=== PATIENT | female | born 1950 | race Caucasian/White ===

== ENCOUNTER 2016-04-20 15:31 | Inpatient (IN) | payer MEDICARE, SELFPAY ==
[2016-04-20] MEDS ORDERED: SODIUM CHLORIDE 0.9% 500 ML IV STA (16:34)
--- NOTE | 2016-04-20 16:38 | ED ---
General Adult HPI - General Chief complaint: Neuro Symptoms/Deficit Stated complaint: left side weakness Time Seen by Provider: 04/20/16 15:40 Source: patient, family, RN notes reviewed Mode of arrival: wheelchair - History of Present Illness Initial comments: This is a 65-year-old female presents emergency Department with a past medical history significant for high cholesterol. Patient states she started having symptoms about 11 AM yesterday she states that started feeling weird on the left side of her body and in fact thought her left side was not as coordinated as it normally is. Patient states she woke up this morning was unable to walk and did fall over but did not injure herself. Patient states she's having a difficult time controlling her left arm or her left leg. Patient has family in the room and they state that the left side of her face is also droopy. She does not appear to have any slurred speech or visual disturbances. Patient denies headache patient denies chest pain patient denies any palpitations difficulty breathing shortness of breath. Patient denies any recent fever chills or cough per patient denies abdominal pain patient denies nausea vomiting diarrhea. - Related Data Home Medications Medication Instructions Recorded Confirmed HYDROcodone/APAP 10-325MG [[place] 1 tab PO QID PRN 05/18/15 04/20/16 10-325] Multivitamins, Thera [Multivitamin] 1 tab PO DAILY 05/18/15 04/20/16 Sertraline [Zoloft] 100 mg PO DAILY 05/18/15 04/20/16 Aspirin [Adult Low Dose Aspirin EC] 81 mg PO DAILY 05/21/15 04/20/16 Allergies Allergy/AdvReac Type Severity Reaction Status Date / Time No Known Allergies Allergy Verified 04/20/16 17:32 Review of Systems ROS Statement: Those systems with pertinent positive or pertinent negative responses have been documented in the HPI. ROS Other: All systems not noted in ROS Statement are negative. Past Medical History Past Medical History: Blood Disorder, Eye Disorder, Hyperlipidemia, Osteoarthritis (OA) Additional Past Medical History / Comment(s): HX MIGRAINES. HX LIDEN FACTOR V. HX NECK PAIN- HERNIATED DISC. USES OTC GLASSES TO READ ONLY History of Any Multi-Drug Resistant Organisms: None Reported Past Surgical History: Appendectomy, Section, Tonsillectomy Additional Past Surgical History / Comment(s): X 2 Past Anesthesia/Blood Transfusion Reactions: No Reported Reaction Past Psychological History: Depression Smoking Status: Current every day smoker Past Alcohol Use History: None Reported Additional Past Alcohol Use History / Comment(s): SMOKER 20 YEARS- 1/2 PPD Past Drug Use History: None Reported - Past Family History Brother(s) Family Medical History: Blood Disorder, Deep Vein Thrombosis (DVT) Additional Family Medical History / Comment(s): LIDEN FACTOR V- HAD BLOOD CLOT Sister(s) Family Medical History: Blood Disorder Additional Family Medical History / Comment(s): 2 SISTERS TESTED POSITIVE ALSO FOR LIDEN FACTOR V General Exam - General Exam Comments Initial Comments: GENERAL: Patient is well-developed and well-nourished. Patient is nontoxic and well- hydrated and is in no acute distress. ENT: Neck is soft and supple. No significant lymphadenopathy is noted. Oropharynx is clear. Moist mucous membranes. Neck has full range of motion without eliciting any pain. EYES: The sclera were anicteric and conjunctiva were pink and moist. Extraocular movements were intact and pupils were equal round and reactive to light. Eyelids were unremarkable. PULMONARY: Unlabored respirations. Good breath sounds bilaterally. No audible rales rhonchi or wheezing was noted. CARDIOVASCULAR: There is a regular rate and rhythm without any murmurs gallops or rubs. ABDOMEN: Soft and nontender with normal bowel sounds. No palpable organomegaly was noted. There is no palpable pulsatile mass. SKIN: Skin is clear with no lesions or rashes and otherwise unremarkable. NEUROLOGIC: Patient is alert and oriented x3. Patient appears to have slight facial drooping on the left side of her face. Patient has poor finger to nose accuracy with the left hand as well as poor heel to fletcher accuracy of the left leg. Patient states it is difficult to control either of those extremities MUSCULOSKELETAL: Normal extremities with adequate strength and full range of motion. No lower extremity swelling or edema. No calf tenderness. LYMPHATICS: No significant lymphadenopathy is noted PSYCHIATRIC: Normal psychiatric evaluation. Course Vital Signs 04/20/16 04/20/16 15:36 16:30 Temperature 98.8 F Pulse Rate 90 76 Respiratory 20 18 Rate Blood Pressure 184/91 191/93 O2 Sat by Pulse 98 100 Oximetry Medical Decision Making - Medical Decision Making CT of the head shows a lacunar infarct and internal capsule chest x-ray shows no acute abnormality. Patient still has residual left-sided deficit and will be admitted as Dr. Dr. Palma he agrees to admission I admitted the patient. - Lab Data Result diagrams: 04/20/16 16:25 04/20/16 16:25 Lab Results 04/20/16 04/20/16 04/20/16 Range/Units 16:25 16:25 16:25 WBC 9.8 (3.8-10.6) k/uL RBC 4.14 (3.80-5.40) m/uL Hgb 12.8 (11.4-16.0) gm/dL Hct 38.4 (34.0-46.0) % MCV 92.8 (80.0-100.0) fL MCH 30.9 (25.0-35.0) pg MCHC 33.3 (31.0-37.0) g/dL RDW 12.4 (11.5-15.5) % Plt Count 319 (150-450) k/uL Neutrophils % 65 % Lymphocytes % 27 % Monocytes % 4 % Eosinophils % 2 % Basophils % 1 % Neutrophils # 6.4 (1.3-7.7) k/uL Lymphocytes # 2.6 (1.0-4.8) k/uL Monocytes # 0.4 (0-1.0) k/uL Eosinophils # 0.2 (0-0.7) k/uL Basophils # 0.1 (0-0.2) k/uL PT (9.0-12.0) sec INR (<1.1) APTT (22.0-30.0) sec Sodium 145 (137-145) mmol/L Potassium 3.4 L (3.5-5.1) mmol/L Chloride 102 (98-107) mmol/L Carbon Dioxide 28 (22-30) mmol/L Anion Gap 15 mmol/L BUN 7 (7-17) mg/dL Creatinine 0.65 (0.52-1.04) mg/dL Est GFR (MDRD) Af Amer >60 (>60 ml/min/1.73 sqM) Est GFR (MDRD) Non-Af >60 (>60 ml/min/1.73 sqM) Glucose 91 (74-99) mg/dL Calcium 9.4 (8.4-10.2) mg/dL Total Bilirubin 0.4 (0.2-1.3) mg/dL AST 28 (14-36) U/L ALT 28 (9-52) U/L Alkaline Phosphatase 65 (38-126) U/L Total Creatine Kinase 160 H (30-135) U/L CK-MB (CK-2) 1.1 (0.0-2.4) ng/mL CK-MB (CK-2) Rel Index 0.7 Troponin I <0.012 (0.000-0.034) ng/mL Total Protein 7.0 (6.3-8.2) g/dL Albumin 4.2 (3.5-5.0) g/dL 04/20/16 Range/Units 16:25 WBC (3.8-10.6) k/uL RBC (3.80-5.40) m/uL Hgb (11.4-16.0) gm/dL Hct (34.0-46.0) % MCV (80.0-100.0) fL MCH (25.0-35.0) pg MCHC (31.0-37.0) g/dL RDW (11.5-15.5) % Plt Count (150-450) k/uL Neutrophils % % Lymphocytes % % Monocytes % % Eosinophils % % Basophils % % Neutrophils # (1.3-7.7) k/uL Lymphocytes # (1.0-4.8) k/uL Monocytes # (0-1.0) k/uL Eosinophils # (0-0.7) k/uL Basophils # (0-0.2) k/uL PT 10.4 (9.0-12.0) sec INR 1.0 (<1.1) APTT 23.7 (22.0-30.0) sec Sodium (137-145) mmol/L Potassium (3.5-5.1) mmol/L Chloride (98-107) mmol/L Carbon Dioxide (22-30) mmol/L Anion Gap mmol/L BUN (7-17) mg/dL Creatinine (0.52-1.04) mg/dL Est GFR (MDRD) Af Amer (>60 ml/min/1.73 sqM) Est GFR (MDRD) Non-Af (>60 ml/min/1.73 sqM) Glucose (74-99) mg/dL Calcium (8.4-10.2) mg/dL Total Bilirubin (0.2-1.3) mg/dL AST (14-36) U/L ALT (9-52) U/L Alkaline Phosphatase (38-126) U/L Total Creatine Kinase (30-135) U/L CK-MB (CK-2) (0.0-2.4) ng/mL CK-MB (CK-2) Rel Index Troponin I (0.000-0.034) ng/mL Total Protein (6.3-8.2) g/dL Albumin (3.5-5.0) g/dL Disposition Clinical Impression: Cerebrovascular accident Disposition: [facility] Time of Disposition: 18:04
[2016-04-20 17:06] LABS: Partial Thromboplastin Time 23.7 sec (22.0-30.0); Prothrombin Time 10.4 sec (9.0-12.0)
[2016-04-20 17:08] LABS: ALT 28 U/L (9-52); AST 28 U/L (14-36); Alkaline Phosphatase 65 U/L (38-126); Anion Gap 15 mmol/L; Blood Urea Nitrogen 7 mg/dL (7-17); Calcium 9.4 mg/dL (8.4-10.2); Carbon Dioxide 28 mmol/L (22-30); Chloride 102 mmol/L (98-107); Glucose 91 mg/dL (74-99); Non-African American GFR(MDRD) >60 (>60 ml/min/1.73 sqM); Potassium 3.4 mmol/L (3.5-5.1); Sodium 145 mmol/L (137-145); Total Bilirubin 0.4 mg/dL (0.2-1.3)
[2016-04-20 17:09] LABS: Basophils # (A) 0.1 k/uL (0-0.2); Basophils % (A) 1 %; CH 31.6; CHCM 34.2; Eosinophils # (A) 0.2 k/uL (0-0.7); Eosinophils % (A) 2 %; HCT 38.4 % (34.0-46.0); HDW 2.48; HGB 12.8 gm/dL (11.4-16.0); Luc # (Auto) 0.18; Luc % (Auto) 2; Lymphocytes # (A) 2.6 k/uL (1.0-4.8); Lymphocytes % (A) 27 %; MCH 30.9 pg (25.0-35.0); MCHC 33.3 g/dL (31.0-37.0); MCV 92.8 fL (80.0-100.0); Mean Platelet Volume 6.5; Monocytes # (A) 0.4 k/uL (0-1.0); Monocytes % (A) 4 %; Neutrophils # (A) 6.4 k/uL (1.3-7.7); Neutrophils % (A) 65 %; RBC 4.14 m/uL (3.80-5.40); RDW 12.4 % (11.5-15.5); WBC 9.8 k/uL (3.8-10.6); WBC (Perox) 10.16
[2016-04-20 17:18] LABS: Creatine Kinase 160 U/L (30-135)
--- NOTE | 2016-04-20 17:25 | XR ---
EXAMINATION TYPE: XR chest 2V DATE OF EXAM: 04/20/2016 5:21 PM COMPARISON: NONE HISTORY: Left-sided arm pain TECHNIQUE: Frontal and lateral views of the chest are obtained. FINDINGS: Heart and mediastinum are normal. Lungs are clear of consolidation. There is no heart fail ure. There are no hilar masses. There is no pleural effusion. IMPRESSION: No active cardiopulmonary disease. There is osteopenia with slight wedging of T8 vertebr a.
--- NOTE | 2016-04-20 17:26 | CT ---
EXAMINATION TYPE: CT brain wo con DATE OF EXAM: 04/20/2016 5:21 PM COMPARISON: NONE HISTORY: Left sided weakness. CT DLP: 1017.90 mGycm Automated exposure control for dose reduction was used. FINDINGS: The ventricles and sulci appear normal. There is no mass effect nor midline shift. There is no sign o f intracranial hemorrhage. There is mild hypodensity at the genu right internal capsule. The calvariu m is intact. There is mild mucosal thickening in the maxillary sinuses. There is mild mucosal thicken ing in the ethmoid and frontal sinus. IMPRESSION: There is probably a lacunar infarct in the right internal capsule. Mild sinusitis.
[2016-04-20 17:31] LABS: Creatine Kinase MB 1.1 ng/mL (0.0-2.4); Troponin I <0.012 ng/mL (0.000-0.034)
[2016-04-20] MEDS ORDERED: ASPIRIN 325 MG TAB PO STA (18:04)
[2016-04-20 20:51] VITALS: BMI 20.3
[2016-04-20] MEDS: HYDROcodone/APAP 10-325MG 1 EACH TAB PO PRN (22:00)
[2016-04-21 07:17] LABS: Anion Gap 9 mmol/L; Blood Urea Nitrogen 8 mg/dL (7-17); Calcium 9.1 mg/dL (8.4-10.2); Carbon Dioxide 29 mmol/L (22-30); Chloride 105 mmol/L (98-107); Glucose 90 mg/dL (74-99); Non-African American GFR(MDRD) >60 (>60 ml/min/1.73 sqM); Potassium 3.9 mmol/L (3.5-5.1); Sodium 143 mmol/L (137-145)
[2016-04-21] MEDS: MULTIVITAMINS, THERA 1 EACH TAB PO SCH (07:52)
[2016-04-21] MEDS: NICOTINE 14MG/24HR PATCH TRANSDERM SCH (07:52)
[2016-04-21] MEDS: SERTRALINE 100 MG TAB PO SCH (07:52)
[2016-04-21] MEDS: HEPARIN SODIUM,PORCINE 5,000 UNIT/ML 1 ML VIAL SQ SCH ×2 (07:52→20:18)
[2016-04-21] MEDS ORDERED: ASPIRIN 325 MG TAB PO SCH (09:00)
[2016-04-21] MEDS: HYDROcodone/APAP 10-325MG 1 EACH TAB PO PRN (11:00)
--- NOTE | 2016-04-21 15:25 | US ---
EXAMINATION TYPE: US venous doppler duplex LE BI DATE OF EXAM: 04/21/2016 2:39 PM COMPARISON: NONE CLINICAL HISTORY:Leg Swelling. Cerebrovascular accident, factor V SIDE PERFORMED: Bilateral VESSELS IMAGED: External Iliac Vein (EIV) Common Femoral Vein Deep Femoral Vein Greater Saphenous Vein * Femoral Vein Popliteal Vein Small Saphenous Vein * Proximal Calf Veins (* superficial vessels) TECHNOLOGIST IMPRESSION: Right Leg: Negative for DVT Left Leg: Negative for DVT Grayscale, color Doppler, spectral Doppler imaging performed of the deep veins of both lower extremit ies. Within the right popliteal fossa there is a focus measuring 2.8 x 1.3 x 1.4 cm which is hypoechoic co mpatible with probable semimembranosus gastric intravenous cyst. IMPRESSION: No deep venous thromboses evident within the bilateral lower extremities. 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
--- NOTE | 2016-04-21 15:27 | US ---
EXAMINATION TYPE: US carotid duplex BILAT DATE OF EXAM: 04/21/2016 3:02 PM COMPARISON: NONE CLINICAL HISTORY: Carotid stenosis, cerebrovascular accident, left-sided weakness EXAM MEASUREMENTS: RIGHT: Peak Systolic Velocity (PSV) cm/sec ----- Right CCA: 74.0 ----- Right ICA: 96.5 ----- Right ECA: 80.9 ICA/CCA ratio: 1.3 RIGHT: End Diastole cm/sec ----- Right CCA: 23.5 ----- Right ICA: 34.2 ----- Right ECA: 18.0 LEFT: Peak Systolic Velocity (PSV) cm/sec ----- Left CCA: 73.1 ----- Left ICA: 78.2 ----- Left ECA: 65.2 ICA/CCA ratio: 1.1 LEFT: End Diastole cm/sec ----- Left CCA: 22.8 ----- Left ICA: 29.2 ----- Left ECA: 16.5 VERTEBRALS (direction of flow): Right Vertebral: Antegrade Left Vertebral: Antegrade Grayscale, color Doppler, spectral Doppler imaging performed of the carotid arteries IMPRESSION: No hemodynamically significant stenosis of the proximal internal carotid arteries bilate rally by Doppler criteria, and indirect measurement of carotid stenosis
--- NOTE | 2016-04-21 17:02 | P.CONS ---
History of Present Illness - Reason for Consult Consult date: 04/21/16 factor V mutation Requesting physician: Caroline Almeida - Chief Complaint left sided weakness - History of Present Illness Ms. Rea is a very pleasant 65 year old female with personal and strong family history-both parents and all siblings-of Factor V leiden mutation , she states she had the labs work 4-5 years ago with her PCP Dr. Zaldivar after her brother had a DVT of the leg. Pt states ongoing "heaviness" in her left arm and left leg, no other deficits to report, she has been on a daily baby aspirin. Denies any personal CVA/TIA, DVT or PE. She has risk factors for stroke including smoking and hyperlipidemia. Review of Systems All systems: negative Constitutional: Reports as per HPI Past Medical History Past Medical History: Blood Disorder, Eye Disorder, Hyperlipidemia, Osteoarthritis (OA) Additional Past Medical History / Comment(s): HX MIGRAINES. HX LIDEN FACTOR V. HX NECK PAIN- HERNIATED DISC. USES OTC GLASSES TO READ ONLY History of Any Multi-Drug Resistant Organisms: None Reported Past Surgical History: Appendectomy, Section, Tonsillectomy Additional Past Surgical History / Comment(s): X 2 Past Anesthesia/Blood Transfusion Reactions: No Reported Reaction Past Psychological History: Depression Smoking Status: Current every day smoker Past Alcohol Use History: None Reported Additional Past Alcohol Use History / Comment(s): Smoke 1 pack a day. started at age 21 Past Drug Use History: None Reported Additional Drug Use History / Comment(s): occasional alcohol use - Past Family History Brother(s) Family Medical History: Blood Disorder, Deep Vein Thrombosis (DVT) Additional Family Medical History / Comment(s): FACTOR V Leiden- HAD BLOOD CLOT Sister(s) Family Medical History: Blood Disorder Additional Family Medical History / Comment(s): 2 SISTERS TESTED POSITIVE ALSO FOR LIDEN FACTOR V Daughter(s) Family Medical History: Blood Disorder Additional Family Medical History / Comment(s): Liden Factor V Mother Family Medical History: Blood Disorder, CVA/TIA Additional Family Medical History / Comment(s): Liden Factor V Father Family Medical History: Blood Disorder Additional Family Medical History / Comment(s): Liden Factor V Medications and Allergies Home Medications Medication Instructions Recorded Confirmed Type HYDROcodone/APAP 10-325MG [[place] 1 tab PO QID PRN 05/18/15 04/20/16 History 10-325] Multivitamins, Thera [Multivitamin] 1 tab PO DAILY 05/18/15 04/20/16 History Sertraline [Zoloft] 100 mg PO DAILY 05/18/15 04/20/16 History Aspirin [Adult Low Dose Aspirin EC] 81 mg PO DAILY 05/21/15 04/20/16 History Allergies Allergy/AdvReac Type Severity Reaction Status Date / Time No Known Allergies Allergy Verified 04/20/16 17:32 Physical Exam Vitals: Vital Signs Temp Pulse Pulse Resp BP BP Pulse Ox 04/21/16 15:23 16 04/21/16 15:22 74 16 181/99 04/21/16 11:09 70 04/21/16 10:59 70 16 151/79 96 04/21/16 08:56 95 04/21/16 08:00 70 16 04/21/16 07:49 96.8 F L 70 16 136/76 95 04/21/16 05:25 97.6 F 72 16 184/100 99 04/21/16 03:29 61 04/21/16 03:25 61 16 156/75 96 04/21/16 00:00 64 04/20/16 23:25 64 16 170/89 98 04/20/16 22:25 61 16 175/86 99 04/20/16 21:25 67 16 186/90 98 04/20/16 20:25 97 F L 60 16 189/88 98 04/20/16 19:15 70 18 181/89 96 Intake and Output 04/21/16 04/21/16 04/21/16 06:59 14:59 22:59 Intake Total 560 Output Total 300 650 Balance -300 -90 Intake: Oral 560 Output: Urine 300 650 Other: Voiding Method Toilet Toilet # Voids 1 # Bowel Movements 0 Weight 52 kg - Constitutional General appearance: average body habitus, cooperative, no acute distress - EENT Eyes: anicteric sclerae, normal appearance ENT: hearing grossly normal, normal oropharynx - Neck Neck: no lymphadenopathy - Respiratory Respiratory: bilateral: CTA - Cardiovascular Rhythm: regular Heart sounds: normal: S1, S2 foot Peripheral Edema: bilateral: None - Gastrointestinal General gastrointestinal: no absent bowel sounds, no decreased bowel sounds, no distended, no hepatomegaly, no hyperactive bowel sounds, normal bowel sounds, no organomegaly, no rigid, no scaphoid, soft, no splenomegaly, no tenderness, no umbilical hernia, no ventral hernia - Integumentary Integumentary: normal - Musculoskeletal Musculoskeletal: left sided weakness - Psychiatric Psychiatric: A&O x's 3, appropriate affect, intact judgment & insight Results CBC & Chem 7: 04/20/16 16:25 04/21/16 06:03 Chest x-ray: report reviewed CT Scan - head: report reviewed Assessment and Plan Plan: Factor V leiden mutation-have requested labs from PCP diagnosing Factor V mutation-are both genes mutated or just 1? Typically, Factor V mutations would be more likely to cause venous thrombosis vs arterial thrombosis but if both genes are mutated then arterial risk would be slightly greater. Pt has ECHO scheduled to evaluate for PFO. Dr. Jones has requested BLE doppler to evaluate for DVT. Final recommendations will be communicated once all labs results are known. Recommend treatment based on stroke protocol for now.
--- NOTE | 2016-04-21 17:39 | P.CNNES ---
History of Present Illness Consult date: 04/21/16 Requesting physician: Joao Palma Reason for Consult: CVA History of Present Illness: Patient is a pleasant 65-year-old female who is being evaluated by the neurology service on 04/21/2016 per the request of Dr. Palma for CVA. Patient states she had gone to bed on Thursday night without any symptoms. She woke up Thursday morning with left-sided weakness. Patient states she tried to walk and fell to the ground. Patient was noted to have a left-sided facial droop. Patient called her daughter and was brought to [facility] for further evaluation. Patient does not report any slurred speech or visual disturbance. Patient denied any pain or headache. Upon admission, patient's blood pressure was noted to be 184/100. Laboratory workup was essentially unremarkable. Patient does report a history of Factor V leiden mutation and has been taking low-dose aspirin at home. Patient reports strong family history of this mutation. Patient denies any prior CVA/TIA. Computed tomography scan of the brain showed right lacunar infarct. Carotid Dopplers were negative for any hemodynamically significant stenosis. Venous Dopplers were negative to bilateral lower extremities. At the time of my evaluation, patient is resting comfortably in bed and appears to be in no acute distress. Review of Systems REVIEW OF SYSTEMS: CONSTITUTIONAL: Alert and oriented EYES: PERRLA ENT: Left-sided facial droop noted CARDIOVASCULAR: Regular rate and rhythm RESPIRATORY: Respirations nonlabored GASTROINTESTINAL: Abdomen is soft GENITOURINARY: Negative PSYCHIATRIC: Negative ENDOCRINE: Negative MUSCULOSKELETAL: Left-sided arm and leg weakness DERMATOLOGICAL: No rash noted Past Medical History Past Medical History: Blood Disorder, Eye Disorder, Hyperlipidemia, Osteoarthritis (OA) Additional Past Medical History / Comment(s): HX MIGRAINES. HX LIDEN FACTOR V. HX NECK PAIN- HERNIATED DISC. USES OTC GLASSES TO READ ONLY History of Any Multi-Drug Resistant Organisms: None Reported Past Surgical History: Appendectomy, Section, Tonsillectomy Additional Past Surgical History / Comment(s): X 2 Past Anesthesia/Blood Transfusion Reactions: No Reported Reaction Past Psychological History: Depression Smoking Status: Current every day smoker Past Alcohol Use History: None Reported Additional Past Alcohol Use History / Comment(s): Smoke 1 pack a day. started at age 21 Past Drug Use History: None Reported Additional Drug Use History / Comment(s): occasional alcohol use - Past Family History Brother(s) Family Medical History: Blood Disorder, Deep Vein Thrombosis (DVT) Additional Family Medical History / Comment(s): FACTOR V Leiden- HAD BLOOD CLOT Sister(s) Family Medical History: Blood Disorder Additional Family Medical History / Comment(s): 2 SISTERS TESTED POSITIVE ALSO FOR LIDEN FACTOR V Daughter(s) Family Medical History: Blood Disorder Additional Family Medical History / Comment(s): Liden Factor V Mother Family Medical History: Blood Disorder, CVA/TIA Additional Family Medical History / Comment(s): Liden Factor V Father Family Medical History: Blood Disorder Additional Family Medical History / Comment(s): Liden Factor V Medications and Allergies Home Medications Medication Instructions Recorded Confirmed Type HYDROcodone/APAP 10-325MG [[place] 1 tab PO QID PRN 05/18/15 04/20/16 History 10-325] Multivitamins, Thera [Multivitamin] 1 tab PO DAILY 05/18/15 04/20/16 History Sertraline [Zoloft] 100 mg PO DAILY 05/18/15 04/20/16 History Aspirin [Adult Low Dose Aspirin EC] 81 mg PO DAILY 05/21/15 04/20/16 History Allergies Allergy/AdvReac Type Severity Reaction Status Date / Time No Known Allergies Allergy Verified 04/20/16 17:32 Physical Examination - Vital Signs Vital Signs: Vital Signs Temp Pulse Pulse Resp BP BP Pulse Ox 04/21/16 15:23 16 04/21/16 15:22 74 16 181/99 04/21/16 11:09 70 04/21/16 10:59 70 16 151/79 96 04/21/16 08:56 95 04/21/16 08:00 70 16 04/21/16 07:49 96.8 F L 70 16 136/76 95 04/21/16 05:25 97.6 F 72 16 184/100 99 04/21/16 03:29 61 04/21/16 03:25 61 16 156/75 96 04/21/16 00:00 64 04/20/16 23:25 64 16 170/89 98 04/20/16 22:25 61 16 175/86 99 04/20/16 21:25 67 16 186/90 98 04/20/16 20:25 97 F L 60 16 189/88 98 04/20/16 19:15 70 18 181/89 96 Intake and Output 04/21/16 04/21/16 04/21/16 06:59 14:59 22:59 Intake Total 560 Output Total 300 650 Balance -300 -90 Intake: Oral 560 Output: Urine 300 650 Other: Voiding Method Toilet Toilet # Voids 1 # Bowel Movements 0 Weight 52 kg PHYSICAL EXAM: GENERAL APPEARANCE: Patient is a well-developed, female who appears to be in no acute distress. HEENT: Normocephalic, atraumatic, left-sided facial asymmetry is seen. Neck is supple with no masses felt. CARDIOVASCULAR: Regular rate and rhythm. ABDOMEN: Nontender, nondistended. EXTREMITIES: Show no edema or clubbing. NEUROLOGICAL EXAM: Patient is awake, alert, and oriented 3. Speech and language are normal. Left-sided facial droop is noted on cranial nerve testing. Strength is 4+/5 on left upper and lower extremity. No sensory deficit noted to light touch in all 4 extremities. Mild left pronator drift is seen. No tremors or seizure-like activity is noted. Results - Laboratory Findings CBC and BMP: 04/20/16 16:25 04/21/16 06:03 Assessment and Plan Plan: Impression: 1. CVA/right lacunar infarct 2. Left-sided weakness 3. History of factor V Leiden mutation 4. Hyperlipidemia 5. History of tobacco use Plan: It does appear patient had suffered a right lacunar infarct with left- sided weakness. Weakness is resolving. I will switch patient's aspirin to Plavix 75 mg by mouth daily. I recommend PT/ OT to evaluate and treat. Continue neurological checks. I will order an EEG, fasting lipid panel, and serum homocysteine level. I will order an MRI of the brain for further evaluation. Further recommendations to follow after testing. Thank you for allowing me to participate in the care of your patient. Feel free to contact me with any questions or concerns. I performed an examination of the patient and discussed the management with the TRANSITION TEACHER. I have reviewed the TRANSITION TEACHER notes and agree with the findings and plan of care.
--- NOTE | 2016-04-21 18:07 | HP ---
DATE OF ADMISSION: 04/20/2016 HISTORY OF PRESENT ILLNESS: This 65-year-old woman with a past medical history of multiple medical problems, including history of eye disorder, history of hyperlipidemia, history of DJD, history of migraines, factor V Leiden deficiency, appendectomy, being followed by Dr. Galan in the outpatient setting, today woke up this morning. The patient noted weakness in the left leg. Subsequently the patient also noted weakness of the left arm also which was feeling of weird on the left side and patient subsequently presented to [facility] after noting some difficulty walking also. The patient was noted to have right infection and admitted to the hospital for further evaluation and treatment. There is no history of any fever, rigors or chills. No history of headache, loss of consciousness or seizures. PAST MEDICAL HISTORY: History of hyperlipidemia, history of DJD, history of migraines, factor V Leiden deficiency. MEDICATIONS: Prior to admission include: 1. Zoloft 100 mg p.o. daily. 2. Multivitamins one daily. 3. Stevenson 10 mg. 4. Ecotrin 81 mg. ALLERGIES: None. FAMILY HISTORY: History of deep venous thrombosis, history of factor V Leiden deficiency. SOCIAL HISTORY: history of smoking. Occasional alcohol intake. REVIEW OF SYSTEMS: ENT: As mentioned earlier. CARDIOVASCULAR: No angina or palpitations. RESPIRATORY: No cough. GI: As mentioned earlier. GENITOURINARY: No dysuria. CENTRAL NERVOUS SYSTEM: As mentioned earlier. ALLERGY/IMMUNOLOGY: No asthma or hayfever. MUSCULOSKELETAL: As mentioned earlier. HEMATOLOGY/ONCOLOGY: No history of anemia. ENDOCRINE: No history of hypothyroidism or diabetes mellitus . CONSTITUTIONAL: As mentioned earlier. DERMATOLOGY: Negative. RHEUMATOLOGY: Negative. PSYCHIATRY: As mentioned earlier. PHYSICAL EXAMINATION: The patient is alert and oriented times three. Pulse 61. Blood pressure ( ), respiratory rate 16, temperature 97 degrees. Pulse ox 99% on room air. HEENT: Conjunctivae normal. NECK: No jugular venous distention. CARDIOVASCULAR: S1, S2 muffled. RESPIRATORY: Breath sounds diminished at the bases. No rhonchi, no crackles. ABDOMEN: Soft, nontender. No mass palpable. LEGS: No edema. No swelling. CENTRAL NERVOUS SYSTEM: Higher functions as mentioned earlier. Cranial nerves 2 thru 12 grossly intact. Minimal facial on the left side. Otherwise weakness of the left upper and lower limb Grade 4 power and pulses are diminished. LYMPHATICS: No lymph nodes palpable in the neck, axillae or groin. SKIN: No ulcer, rash or bleeding. JOINTS: No active deforming arthropathy in the joints. Labs are CBC within normal limits. Potassium 3.4, creatinine kinase 160. ASSESSMENT: 1. Acute lacunar stroke involving the right causing left sided weakness. 2. Hypokalemia. 3. History of hyperlipidemia. 4. History of degenerative joint disease. 5. History of migraines. 6. History of continued ongoing nicotine dependence. 7. Factor V Leiden deficiency. 8. History of cervical degenerative joint disease. 9. History of appendectomy. 10. History of depression. 11. History of family history of hypercoagulability. RECOMMENDATIONS AND DISCUSSION: This 65-year-old woman who presented with multiple complex medical issues, we will monitor the patient closely. Continue current medications. Continue symptomatic treatment. Otherwise, at this time, I recommend antiplatelet agents. Neurology evaluation. Neurovascular work-up. Guarded prognosis because of multiple complex medical issues. Further recommendations to follow. Recommend a neurology as well as hematology evaluation also. DVT prophylaxis. Further recommendations to follow. MTDD
[2016-04-21] MEDS: CLOPIDOGREL 75 MG TAB PO SCH (18:21)
[2016-04-21] MEDS: ALPRAZolam 0.25 MG TAB PO PRN (20:17)
[2016-04-21] MEDS ORDERED: MELATONIN 3 MG TABLET PO PRN (21:00)
[2016-04-21] MEDS ORDERED: ATORVASTATIN 20 MG TAB PO SCH (21:00)
[2016-04-21 22:39] LABS: Appearance,Urine Clear (Clear); Bacteria,Urine Rare /hpf; Bilirubin,Urine Negative (Negative); Glucose,Urine (UA) Negative (Negative); Ketones,Urine Negative (Negative); Leukocyte Esterase,Urine Small (Negative); Nitrite,Urine Negative (Negative); Particle Count 370; Protein,Urine Negative (Negative); Specific Gravity,Urine 1.002 (1.001-1.035); Squamous Epithelial Cell,Urine <1 /hpf (0-4); UA Billing (MACRO vs. MICRO) MICRO; Urobilinogen,Urine <2.0 mg/dL (<2.0); WBC,Urine 13 /hpf (0-5)
[2016-04-22 06:01] LABS: Basophils # (A) 0.1 k/uL (0-0.2); Basophils % (A) 1 %; CH 31.8; CHCM 33.7; Eosinophils # (A) 0.3 k/uL (0-0.7); Eosinophils % (A) 4 %; HCT 40.9 % (34.0-46.0); HDW 2.52; HGB 13.3 gm/dL (11.4-16.0); Luc # (Auto) 0.15; Luc % (Auto) 2; Lymphocytes # (A) 2.1 k/uL (1.0-4.8); Lymphocytes % (A) 26 %; MCHC 32.7 g/dL (31.0-37.0); MCV 94.9 fL (80.0-100.0); Mean Platelet Volume 7.1; Monocytes # (A) 0.4 k/uL (0-1.0); Monocytes % (A) 5 %; Neutrophils # (A) 4.9 k/uL (1.3-7.7); Neutrophils % (A) 62 %; RBC 4.31 m/uL (3.80-5.40); RDW 12.6 % (11.5-15.5); WBC 7.8 k/uL (3.8-10.6); WBC (Perox) 8.48
[2016-04-22 06:23] LABS: Anion Gap 10 mmol/L; Blood Urea Nitrogen 6 mg/dL (7-17); Calcium 9.3 mg/dL (8.4-10.2); Carbon Dioxide 30 mmol/L (22-30); Chloride 104 mmol/L (98-107); Cholesterol 216 mg/dL (<200); Glucose 97 mg/dL (74-99); HDL Cholesterol 50 mg/dL (40-60); Non-African American GFR(MDRD) >60 (>60 ml/min/1.73 sqM); Potassium 3.9 mmol/L (3.5-5.1); Sodium 144 mmol/L (137-145); Triglycerides 197 mg/dL (<150)
[2016-04-22] MEDS: SERTRALINE 100 MG TAB PO SCH (09:39)
[2016-04-22] MEDS: HEPARIN SODIUM,PORCINE 5,000 UNIT/ML 1 ML VIAL SQ SCH ×2 (09:39→20:33)
[2016-04-22] MEDS: MULTIVITAMINS, THERA 1 EACH TAB PO SCH (09:39)
[2016-04-22] MEDS: NICOTINE 14MG/24HR PATCH TRANSDERM SCH (09:39)
[2016-04-22] MEDS: CLOPIDOGREL 75 MG TAB PO SCH (09:39)
--- NOTE | 2016-04-22 09:49 | PN ---
DATE OF SERVICE: 04/21/2016 CHIEF COMPLAINT: Weakness left side of the body. HISTORY OF PRESENT ILLNESS: This 65-year-old woman with a past medical history of multiple medical problems admitted with weakness possible right capsule stroke at this time. The patient also had factor V Leiden deficiency. The patient had ultrasound of the leg for DVT which showed no evidence of deep venous thrombosis. The patient's carotid Doppler study was also done which showed no hemodynamically significant stenosis. Past medical history reviewed. REVIEW OF SYSTEMS: CARDIOVASCULAR SYSTEM: No angina or palpitations. RESPIRATORY: As mentioned earlier. GI: As mentioned earlier. GENITOURINARY: As mentioned earlier. CENTRAL NERVOUS SYSTEM: No numbness, weakness. Current medications are reviewed and include: 1. [place] 10 mg q.i.d. p.r.n. 2. Xanax 0.5 t.i.d. 3. Lipitor 20 mg 4. Plavix 75 mg daily. 5. Heparin 5000 subcu b.i.d. 6. Melatonin. 7. Multivitamins. 8. Habitrol 14. 9. Zoloft. PHYSICAL EXAMINATION: The patient is alert and oriented times three. Pulse is 74, blood pressure ntd respiratory rate 16, temperature normal, pulse ox normal. HEENT: Conjunctivae normal. Oral mucosa moist. NECK: No jugular venous distention. No carotid bruit. No lymph node enlargement. CARDIOVASCULAR: S1, S2 muffled. No S3, no S4. RESPIRATORY: Breath sounds diminished at the bases. No rhonchi. No crackles. ABDOMEN: Soft. Nontender. No mass palpable. LEGS: No edema. No swelling. CENTRAL NERVOUS SYSTEM: Higher function as mentioned earlier. Cranial nerves left facial deviation present. Otherwise, the movement of the left upper and lower limbs are diminished with a grade 4 power, diminished. LYMPHATICS: No lymph nodes palpable in the neck, axillae or groin. SKIN: No ulcer, rash or bleeding. LABS: CBC within normal limits, potassium 3.9. ASSESSMENT: 1. Acute lacunar stroke involving the right internal capsule causing left-sided weakness and acute cerebrovascular accident. 2. Hyperkalemia. 3. Hyperlipidemia. 4. History degenerative joint disease . 5. History of migraine. 6. History of continued ongoing nicotine dependence. 7. Factor V Leiden deficiency. 8. History of cervical degenerative joint disease. 9. Appendectomy. 10. History of depression. 11. Family history of hypercoagulability. 12. FULL CODE. RECOMMENDATIONS AND DISCUSSION: In this 65-year-old woman who presented with multiple complex medical issues, we will monitor the patient closely. Continue with antiplatelet agents. Follow closely with neurology and continue with the neurovascular work-up. If the carotid ultrasound is also negative, would also recommend NATO with Cardiology if okay with neurology. Otherwise, continue to monitor. Also recommend baseline UA also. Further recommendations to follow. DVT prophylaxis. Further recommendations to follow. MTDD
--- NOTE | 2016-04-22 11:13 | MR ---
EXAMINATION TYPE: MR brain wo con DATE OF EXAM: 04/22/2016 10:29 AM COMPARISON: NONE HISTORY: CVA, Left sided weakness T1-weighted sagittal, T2, FLAIR, and diffusion axial, and T2 coronal coronal views of the brain are s ubmitted. There is diffusion restriction within the right thalamus measuring 1.7 cm compatible with acute ische papi. No significant mass effect. The ventricles, basal cisterns, and sulci overlying the convexities are consistent with the patient's age. Craniocervical junction maintained. Sella turcica has a normal appearance. There are diffuse and numerous focal areas of abnormal signal within the deep white matter compatible with nonspecific white matter findings. Differential diagnosis would include remote microvascular is chemia and demyelinating process. Changes of chronic sinusitis noted. Signal noted within the natasha suggest remote areas of tiny ischemi a. Report called to the patient's nurse. IMPRESSION: 1. There is a 1.7 cm area of acute ischemia within the right thalamus. 2. Nonspecific white matter findings. Correlate for demyelinating process versus remote microvascular ischemia.
[2016-04-22] MEDS: HYDROcodone/APAP 10-325MG 1 EACH TAB PO PRN (14:15)
--- NOTE | 2016-04-22 18:35 | P.PN ---
Subjective Principal diagnosis: Patient is a pleasant 65-year-old female who is being followed by the neurology service for CVA. Patient does have history of factor V Leiden mutation. Patient was taking low-dose aspirin at home. Patient is now on Plavix 75 mg daily. As you recall, carotid Doppler showed no significant stenosis. Venous Dopplers were negative as well. MRI of the brain did reveal a 1.7 cm area of acute ischemia within the right thalamus. At the time of my evaluation, patient is resting comfortably in bed and appears to be in no acute distress. Objective - Vital Signs Vital signs: Vital Signs Temp 98.3 F 04/22/16 15:00 Pulse 71 04/22/16 15:00 Resp 16 04/22/16 15:00 BP 170/88 04/22/16 15:00 Pulse Ox 95 04/22/16 15:00 Intake & Output 04/21/16 04/22/16 04/22/16 18:59 06:59 18:59 Intake Total 560 780 Output Total 650 400 350 Balance -90 -400 430 Weight 49.2 kg Intake: Oral 560 780 Output: Urine 650 400 350 Stool 0 Other: Voiding Method Toilet Toilet # Voids 1 1 # Bowel Movements 0 0 - Exam PHYSICAL EXAM: GENERAL APPEARANCE: Patient is a well-developed, female who appears to be in no acute distress. HEENT: Normocephalic, atraumatic, mild left facial asymmetry is seen. Neck is supple with no masses felt. CARDIOVASCULAR: Regular rate and rhythm. ABDOMEN: Nontender, nondistended. EXTREMITIES: Show no edema or clubbing. Mild left-sided weakness NEUROLOGICAL EXAM: Patient is awake, alert, and oriented 3. Speech and language are normal. Mild left facial droop is noted on cranial nerve testing. Strength is 5 minus/5 on left upper and lower extremities and is full on the right upper and lower extremities. Sensory exam to light touch is normal in all 4 extremities. No tremors or seizure-like activity is noted. - Labs CBC & Chem 7: 04/22/16 05:28 04/22/16 05:28 Labs: Abnormal Lab Results - Last 24 Hours (Table) 04/21/16 04/22/16 Range/Units 10:23 05:28 BUN 6 L (7-17) mg/dL Triglycerides 197 H (<150) mg/dL Cholesterol 216 H (<200) mg/dL LDL Cholesterol, Calc 127 H (0-99) mg/dL Ur Leukocyte Esterase Small H (Negative) Urine WBC 13 H (0-5) /hpf Urine Bacteria Rare H (None) /hpf Urine Opiates Screen Detected H (NotDetected) Assessment and Plan Plan: Impression: 1. CVA/right lacunar infarct 2. Left-sided weakness 3. History of factor V Leiden mutation 4. Hyperlipidemia 5. History of tobacco use Plan: It does appear patient had suffered a right lacunar infarct with left- sided weakness. Weakness is resolving. I will switch patient's aspirin to Plavix 75 mg by mouth daily. I recommend PT/ OT to continue. Continue neurological checks. EEG to be done tomorrow. Her fasting lipid panel is elevated and I recommend continuing statin therapy. Her serum homocysteine level was within normal limits. MRI of the brain did show area of acute ischemia within the right thalamus as mentioned above. Given the negative venous Dopplers and carotid Dopplers, I will order a NATO to be done to evaluate possible etiology for stroke. Further recommendations to follow after testing. I performed an examination of the patient and discussed the management with the [facility]ELER. I have reviewed the B[facility] PEELER notes and agree with the findings and plan of care.
--- NOTE | 2016-04-22 19:35 | PN ---
DATE OF SERVICE: 04/22/2016 This 65-year-old woman was admitted with acute stroke involving the right side; also had right-sided internal capsule thalamic area stroke on the MRI. The patient also had a history of coagulopathy; 1.7 cm area of acute ischemia in the right lung was noted. Non-specific white matter changes were also noted. The patient is being closely monitored. Cardiology is planning NATO. Carotid ultrasound was negative for internal carotid artery stenosis. Past medical history reviewed. REVIEW OF SYSTEMS: CARDIOVASCULAR SYSTEM: No angina, palpitations. RESPIRATORY SYSTEM: As mentioned earlier. GI: As mentioned earlier. HOME MEDICATIONS: 1. [place] 10 mg q.i.d. p.r.n. 2. Xanax 0.25 t.i.d. 3. Lipitor 20 mg at bedtime. 4. Plavix 75 mg p.o. daily. 5. Heparin 5000 units subcutaneously b.i.d. 6. Melatonin 3 mg at bedtime. 7. Multivitamins 1 p.o. daily. 8. Habitrol 14 daily. 9. Zoloft 100 mg p.o. daily. PHYSICAL EXAMINATION: Patient is alert and oriented x3. Pulse 62. Blood pressure 160/77, respiration 16, temperature 97.3, pulse ox 94% on room air. HEENT: Conjunctivae normal. NECK: No jugular venous distention. CARDIOVASCULAR SYSTEM: S1, S2 muffled. RESPIRATORY SYSTEM: Breath sounds diminished at the bases. No rhonchi. No crackles. ABDOMEN: Soft. Non-tender. No mass palpable. LEGS: No edema. No swelling. NERVOUS SYSTEM: Higher functions as mentioned earlier. Minimal flattening of the lower part of the face. Some weakness on the left side, grade 4 to 4+, present. LYMPHATICS: No lymph node palpable in neck, axilla or groin. SKIN: No ulcer, rash or bleeding. LABS: CBC within normal limits. Lipid panel showed cholesterol 216 and LDL 127. ASSESSMENT: 1. Acute cerebrovascular incident involving the right internal capsule and thalamus causing left-sided weakness. 2. Hyperkalemia. 3. Hyperlipidemia. 4. History of degenerative joint disease. 5. History of migraine. 6. History of continued ongoing nicotine dependence. 7. Factor V Leiden deficiency. 8. History of cervical degenerative joint disease. 9. Appendectomy. 10. History of depression. 11. Family history of hypercoagulability. 12. FULL CODE. RECOMMENDATIONS AND DISCUSSION: I recommend to continue with the current medications, continue with the monitoring, symptomatic treatment. Continue with Lipitor. Continue with rest of the medications. Continue with antiplatelet agents. I would also recommend NATO per Cardiology. The ultrasound is negative for DVT. The prognosis is guarded because of multiple complex medical issues. The probable Gordon's cyst was noted. Discussed with multiple members of the family. Further recommendations to follow. See orders for further details. CHIVOD
[2016-04-22] MEDS: ALPRAZolam 0.25 MG TAB PO PRN (20:34)
[2016-04-22] MEDS ORDERED: ATORVASTATIN 40 MG TAB PO SCH (21:00)
[2016-04-23 06:33] LABS: Basophils # (A) 0.1 k/uL (0-0.2); Basophils % (A) 1 %; CH 31.3; CHCM 33.3; Eosinophils # (A) 0.2 k/uL (0-0.7); Eosinophils % (A) 2 %; HCT 40.9 % (34.0-46.0); HDW 2.45; HGB 13.4 gm/dL (11.4-16.0); Luc # (Auto) 0.22; Luc % (Auto) 3; Lymphocytes # (A) 2.6 k/uL (1.0-4.8); Lymphocytes % (A) 30 %; MCH 30.9 pg (25.0-35.0); MCHC 32.7 g/dL (31.0-37.0); MCV 94.5 fL (80.0-100.0); Mean Platelet Volume 6.6; Monocytes # (A) 0.4 k/uL (0-1.0); Monocytes % (A) 5 %; Neutrophils # (A) 5.1 k/uL (1.3-7.7); Neutrophils % (A) 60 %; RBC 4.32 m/uL (3.80-5.40); RDW 12.4 % (11.5-15.5); WBC 8.6 k/uL (3.8-10.6); WBC (Perox) 8.89
[2016-04-23 06:47] LABS: Anion Gap 15 mmol/L; Blood Urea Nitrogen 6 mg/dL (7-17); Calcium 9.5 mg/dL (8.4-10.2); Carbon Dioxide 24 mmol/L (22-30); Chloride 107 mmol/L (98-107); Glucose 89 mg/dL (74-99); Non-African American GFR(MDRD) >60 (>60 ml/min/1.73 sqM); Potassium 4.1 mmol/L (3.5-5.1); Sodium 146 mmol/L (137-145)
--- NOTE | 2016-04-23 10:15 | ECHOF ---
Referral Reason:Stroke MEASUREMENTS -------- HEIGHT: 157.5 cm WEIGHT: 49.0 kg BP: 156/78 RVIDd: 2.5 cm (< 3.3) IVSd: 0.9 cm (0.6 - 1.1) LVIDd: 3.4 cm (3.9 - 5.3) LVPWd: 1.0 cm (0.6 - 1.1) IVSs: 1.2 cm LVIDs: 2.4 cm LVPWs: 1.3 cm LA Diam: 2.6 cm (2.7 - 3.8) Ao Diam: 2.7 cm (2.0 - 3.7) AV Cusp: 1.7 cm (1.5 - 2.6) MV EXCURSION: 11.280 mm (> 18.000) MV EF SLOPE: 79 mm/s (70 - 150) EPSS: 0.4 cm MV E Milo: 0.49 m/s MV DecT: 234 ms MV A Milo: 0.64 m/s MV E/A Ratio: 0.76 RAP: 5.00 mmHg RVSP: 16.83 mmHg FINDINGS -------- Sinus rhythm. This was a technically good study. Left ventricular wall thickness is normal. Overall left ventricular systolic function is normal with, an EF between 55 - 60 %. The right ventricle is normal in size. The left atrial size is normal. The right atrium is normal in size. Aortic valve is trileaflet and is mildly thickened. The mitral valve leaflets are mildly thickened. Mild mitral annular calcification present. There is trace mitral regurgitation. Trace tricuspid regurgitation present. Right ventricular systolic pressure is normal at < 35 mmHg. Pulmonic valve appears structurally normal. The aortic root size is normal. Normal inferior vena cava with normal inspiratory collapse consistent with estimated right atrial pressure of 5 mmHg. Echo free space may represent effusion or a pericardial fat pad. CONCLUSIONS -------- 1. Sinus rhythm. 2. Mild mitral annular calcification present. 3. There is trace mitral regurgitation. 4. Trace tricuspid regurgitation present. 5. Right ventricular systolic pressure is normal at < 35 mmHg. 6. Pulmonic valve appears structurally normal. 7. The aortic root size is normal. 8. Echo free space may represent effusion or a pericardial fat pad. 9. This was a technically good study. 10. Left ventricular wall thickness is normal. 11. Overall left ventricular systolic function is normal with, an EF between 55 - 60 %. 12. The right ventricle is normal in size. 13. The left atrial size is normal. 14. The right atrium is normal in size. 15. Aortic valve is trileaflet and is mildly thickened. 16. The mitral valve leaflets are mildly thickened. GENERATOR OPERATOR STRAIGHT BEVEL GEAR: Joshua Haywood RDCS
[2016-04-23] MEDS: HEPARIN SODIUM,PORCINE 5,000 UNIT/ML 1 ML VIAL SQ SCH (11:19)
[2016-04-23] MEDS: NICOTINE 14MG/24HR PATCH TRANSDERM SCH (11:20)
[2016-04-23] MEDS: CLOPIDOGREL 75 MG TAB PO SCH (11:20)
[2016-04-23] MEDS: MULTIVITAMINS, THERA 1 EACH TAB PO SCH (11:20)
[2016-04-23] MEDS: SERTRALINE 100 MG TAB PO SCH (11:20)
[2016-04-23] MEDS ORDERED: fentaNYL (PF) 50 MCG/ML 2 ML AMP ONE (12:31)
[2016-04-23] MEDS ORDERED: MIDAZOLAM 2 MG/2 ML VIAL ONE (12:31)
[2016-04-23 12:38] VITALS: RESP 16; TEMP 97.4
[2016-04-23] MEDS: BENZOCAINE SPRAY 100 APPLIC/CAN MUCOUS MEM ONE ×2 (12:50→12:55)
[2016-04-23] MEDS ORDERED: IV FLUID CONTINUATION 500 ML IV ONE (12:50)
[2016-04-23] MEDS: fentaNYL (PF) 50 MCG/ML 2 ML AMP IV ONE ×2 (13:05→13:07)
[2016-04-23] MEDS: MIDAZOLAM 2 MG/2 ML VIAL IV ONE ×2 (13:05→13:07)
[2016-04-23] MEDS ORDERED: SODIUM CHLORIDE 0.9% 1,000 ML IV SCH (13:30)
[2016-04-23 14:23] VITALS: BP 168/80; PULSE 69
--- NOTE | 2016-04-23 21:34 | P.PCN ---
Date of Procedure: 04/23/16 Preoperative Diagnosis: CVA Postoperative Diagnosis: No definite source of cardiac emboli Procedure(s) Performed: NATO examination Description of Procedure: INDICATION : To rule out Cardec source of emboli CONSENT: Verbal consent was obtained from the patient and family PROCEDURE: The patient was brought to the examination room in a fasting state. The throat was sprayed with Hurricaine. Patient was given IV sedation with fentanyl and Versed. A lubricated Omni probe was introduced in the oropharynx and was advanced into the esophagus. Multiple views were obtained both from esophagus and stomach. Color Doppler study and pulse Doppler study was performed. Saline contrast bubble injection of performed. Patient tolerated the procedure well. She was transferred to the floor in a stable condition. FINDINGS: The aortic valve was tricuspid with normal opening excursion. Trace regurgitation is noted. The mitral valve appeared to be normal with moderate mitral regurgitation which is central in location. The Pisa value was 0.5. The left atrial appendage appeared to be free of any clot. The intra-atrial septum appeared to be intact without any shunt. Saline bubble injection also did not reveal any crossing of the bubbles. Left ventricular function appeared to be preserved. There is moderate plaque in the aorta. IMPRESSION: #1. No PFO #2. No clot in the left atrial appendage #3. Moderate mitral regurgitation #4. Preserved LV function #5. Moderate plaque in the aorta PLAN: continuation of antiplatelet agents
--- NOTE | 2016-04-24 23:20 | DS ---
DATE OF ADMISSION: 04/20/2016 DATE OF DISCHARGE: 04/23/2016 FINAL DIAGNOSES: 1. Acute cerebrovascular incident involving the right internal capsule and thalamus causing left-sided weakness. 2. Hypokalemia. 3. Hyperlipidemia. 4. History of degenerative joint disease. 5. History of migraines. 6. Continued ongoing nicotine dependence. 7. Factor V Leiden deficiency. 8. History of cervical degenerative joint disease. 9. Appendectomy. 10. History of depression. 11. Family history of coagulopathy. 12. Moderate mitral regurgitation. 13. FULL CODE. DISCHARGE DISPOSITION: The patient will be discharged in stable condition with guarded prognosis. HISTORY OF PRESENT ILLNESS: This 65-year-old woman with a past medical history of multiple medical problems was admitted with features of stroke. Neurology saw the patient. The patient also had a brain MRI. The patient also had a NATO. Multiple consultants saw the patient. NATO showed no PFO and no cardiac source of emboli and moderate mitral regurgitation, preserved LV function, moderate plaque in the aorta. Currently patient is stable. CARDIOVASCULAR SYSTEM: S1, S2 muffled. ABDOMEN: Soft. NERVOUS SYSTEM: Minimal weakness on the left side. DISCHARGE ADVICE AND MEDICATIONS: 1. Diet is cardiac. 2. Activity limited until followup. 3. Follow up with Dr. Galan in 2 to 3 days. 4. Follow up with Dr. Guthrie as advised. 5. Follow up with Cardiology p.r.n. 6. Xanax 0.25 t.i.d. p.r.n. 7. Lipitor 40 mg at bedtime. 8. Plavix 75 mg p.o. daily. 9. Hydrocodone ([place]) 10 mg q.i.d. p.r.n. 10. Multivitamins 1 p.o. daily. 11. Habitrol 14 daily. 12. Zoloft 100 mg p.o. daily. Once again, the patient will be discharged in stable condition with guarded prognosis.
--- NOTE | 2016-04-30 11:14 | EEG ---
DATE OF SERVICE: 04/23/2016 REASON FOR TESTING: Stroke. AGE: 65Y DESCRIPTION OF THE PROCEDURE: This EEG was performed using a 21-channel digital electroencephalograph, following the international 10 to 20 system. DESCRIPTION OF THE RECORDING: From the beginning of the tracing, and with the patient's eyes closed, the background rhythm was mostly consisting of 9 Hz alpha frequency in the posterior occipital leads. No obvious asymmetry is seen. Frequent movement and muscle artifacts are noticed. Photic stimulation was performed with a minimal driving response seen. No pathological waves were elicited. Hyperventilation was not performed. The patient remains awake throughout the tracing. No epileptiform discharges were seen. Her EKG lead showed a regular rate and rhythm. INTERPRETATION: This awake EEG can be considered within normal limits. There was no asymmetry seen. No epileptiform discharges were noticed. The absence of epileptiform discharges does not rule out the diagnosis of epilepsy, therefore clinical correlation is recommended.
== END 2016-04-23 16:54 | disposition home health service (06) | DRG 65 ==
LOC: EC 15:31 → 6SEL 18:04
PROVIDERS: ADMIT Internal Medicine; ATTEND Internal Medicine
PROC: B246ZZ4 Ultrasonography of Right and Left Heart, Transesophageal (ICD-10-PCS; principal; 2016-04-23 12:45)
DX: I63.9 Cerebral infarction, unspecified (principal); G81.94 Hemiplegia, unspecified affecting left nondominant side; D68.51 Activated protein C resistance; R41.89 Other symptoms and signs involving cognitive functions and awareness; R29.810 Facial weakness; R29.704 NIHSS score 4; E87.6 Hypokalemia; M47.812 Spondylosis without myelopathy or radiculopathy, cervical region; E78.5 Hyperlipidemia, unspecified; M19.90 Unspecified osteoarthritis, unspecified site; I34.0 Nonrheumatic mitral (valve) insufficiency; E78.00 Pure hypercholesterolemia, unspecified; R26.2 Difficulty in walking, not elsewhere classified; G43.909 Migraine, unspecified, not intractable, without status migrainosus; Z86.73 Personal history of transient ischemic attack (TIA), and cerebral infarction without residual deficits; Z90.49 Acquired absence of other specified parts of digestive tract; Z87.891 Personal history of nicotine dependence; Z79.82 Long term (current) use of aspirin; Z86.59 Personal history of other mental and behavioral disorders; Z79.899 Other long term (current) drug therapy; W19.XXXA Unspecified fall, initial encounter; Z83.2 Family history of diseases of the blood and blood-forming organs and certain disorders involving the immune mechanism
CPT/HCPCS: 36415; 70450; 70551; 71020; 80048; 80053; 80061; 80306; 81001; 82550; 82553; 83090; 84484; 85025; 85610; 85730; 93306; 93312; 93320; 93325; 93880; 93965; 93970; 94760; 95816; 96360; 96361; 99285

== ENCOUNTER → 2017-05-13 | Outpatient (CLI) | payer MEDICARE, SELFPAY ==
--- NOTE | 2017-05-13 14:46 | XR ---
Left hip HISTORY: Pain 2 views of the left hip Bone mineralization is reduced which could limit sensitivity. Alignment and joint spaces are normal. No fracture or dislocation. IMPRESSION: Osteopenia.
--- NOTE | 2017-05-13 14:59 | XR ---
Left femur HISTORY: Leg pain 2 views of left femur on 4 images correlated to left hip same date Bone mineralization is mildly reduced. Loss of joint space present within the left knee may be due to underlying rheumatoid arthritis. No hypertrophic change. No evident joint effusion. No fracture or d islocation. IMPRESSION: No acute abnormality. Correlate for rheumatoid arthritis, consider dedicated knee imaging .
== END | disposition home or self-care (01) ==
LOC: RADXRYALE 10:04
PROVIDERS: ATTEND Physician Assistant Medical
DX: M85.88 Other specified disorders of bone density and structure, other site (principal); M79.605 Pain in left leg
CPT/HCPCS: 73502

== ENCOUNTER → 2017-05-29 | Outpatient (CLI) | payer MEDICARE ==
--- NOTE | 2017-05-29 23:21 | MR ---
EXAMINATION TYPE: MR hip LT wo con DATE OF EXAM: 05/29/2017 COMPARISON: NONE HISTORY: Pain in left hip / Left leg pain Standard multiplanar, multisequence MRI departmental protocol Multiplanar, multisequence images of the left hip were acquired. FINDINGS: The bony pelvis appears intact. Proximal femurs and hip joints have normal signal pattern. There is no evidence of bony edema. There is minimal bilateral acetabular spurring. There is no evide nce of a pelvic mass. The sacroiliac joints appear intact. There is mild increased fluid signal later al to the greater trochanter of the left femur. IMPRESSION: Minor degenerative changes in both hip joints. No evidence of a fracture. No evidence of avascular ne crosis. Minimal fluid at the greater trochanter of the left femur could relate to trochanteric bursitis.
== END | disposition home or self-care (01) ==
LOC: RADMRIMAIN 11:08
PROVIDERS: ATTEND Physician Assistant Medical
DX: M79.605 Pain in left leg (principal)

== ENCOUNTER → 2017-06-01 | Outpatient (CLI) | payer MEDICARE ==
--- NOTE | 2017-06-01 18:08 | BD ---
EXAMINATION TYPE: MG DEXA axial skeleton. DATE OF EXAM: 06/01/2017 COMPARISON: NONE CLINICAL HISTORY: 66-year-old female screening for osteoporosis Height: 61.5 IN Weight: 113 LBS FRAX RISK QUESTIONS: Alcohol (3 or more units per day): NO Family History (Parent hip fracture): NO Glucocorticoids (More than 3mos): NO (Ex: prednisone, prednisolone, methylprednisolone, dexamethasone, and hydrocortisone). History of Fracture in Adulthood: NO Secondary Osteoporosis: 1. Type 1 Diabetes: NO 2. Hyperthyroidism: NO 3. Menopause before 45: NO AGE 50 4. Malnutrition: NO 5. Chronic liver disease: NO Rheumatoid Arthritis: NO Current Tobacco Use: YES RISK FACTORS HISTORY OF: Active: MODERATE Postmenopausal woman: AGE 50 MEDICATIONS: Additional Medications: MULTI VIT, CHOLESTEROL MEDS, HIGH BLOOD PRESSURE MEDS, NORCO, ZOLOFT EXAM MEASUREMENTS: Bone mineral densitometry was performed using the [employer] System. Bone mineral density as measured about the Lumbar spine is: ----- L1-L4(G/cm2): 1.059 T Score Values are as follows: ----- L2: -2.2 ----- L3: -1.2 ----- L4: 0.8 ----- L1-L4: -1.0 Bone mineral density BASELINE Bone mineral density about the R hip (g/cm2): 0.624 Bone mineral density about the L hip (g/cm2): 0.624 T Score values are as follows: -----R Neck: -3.0 -----L Neck: -3.0 -----R Total: -2.4 -----L Total: -2.3 Bone mineral density BASELINE IMPRESSION: Osteoporosis (T Score less than -2.5) as noted by T Score values at the There is increased fracture risk and therapy is usually indicated based on age. Re-Screen 1-2 years. NOTE: T-SCORE=SD OF THE YOUNG ADULT MEAN.
== END | disposition home or self-care (01) ==
LOC: RADBDWWP 10:36
PROVIDERS: ATTEND Family Medicine
DX: M81.0 Age-related osteoporosis without current pathological fracture (principal)
CPT/HCPCS: 77080

== ENCOUNTER → 2019-06-20 | Outpatient (CLI) | payer MEDICARE, OTHER ==
--- NOTE | 2019-06-20 11:23 | XR ---
EXAMINATION TYPE: XR chest 2V DATE OF EXAM: 06/20/2019 COMPARISON: 04/20/2016 TECHNIQUE: PA and lateral views submitted. HISTORY: Cough FINDINGS: The lungs are clear and there is no pneumothorax, pleural effusion, or focal pneumonia. Arthropathy of the shoulders. Biapical pleural thickening. Hyperinflation suggests COPD. Hypertrophic and degene rative change the spine. Vague density in the right lung apex. IMPRESSION: 1. Vague density in the right lung apex. Recommend CT scan of the chest further evaluation.
== END | disposition home or self-care (01) ==
LOC: RADXRYALE 10:38
PROVIDERS: ATTEND Physician Assistant Medical
DX: J98.4 Other disorders of lung (principal)
CPT/HCPCS: 71046

== ENCOUNTER → 2024-10-19 | Outpatient (CLI) | payer MEDICARE, OTHER ==
--- NOTE | 2024-10-19 15:09 | XR ---
EXAMINATION TYPE: XR Hip Bilateral Complete DATE OF EXAM: 10/19/2024 3:05 PM INDICATION: Patient age:Female; 74 years old; Reason for study: [id number] SONAM HIP PAIN; [facility]. pain COMPARISON: MR left hip 05/29/2017, left hip radiograph 05/13/2017 TECHNIQUE: Both hips were examined in the frontal and lateral projections . FINDINGS: No evidence of any acute osseous pathology, joint dislocation, or soft tissue swelling. No significant joint space narrowing or marginal osteophytosis. Vascular calcifications noted. IMPRESSION: 1. No acute osseous pathology. 2. No significant osteoarthritic changes of the hips. [facility], , 10/19/2024 3:07 PM
== END | disposition home or self-care (01) ==
LOC: RADXRYALE 14:45
PROVIDERS: ATTEND Physician Assistant
DX: M25.551 Pain in right hip (principal); M25.552 Pain in left hip
CPT/HCPCS: 73521